=== PATIENT | female | born 1985 | race American Indian/Alaskan Native ===

== ENCOUNTER 2017-06-18 04:30 | Emergency (ER) | payer SELFPAY ==
[2017-06-18 04:42] VITALS: BP 139/85; PULSE 86; RESP 16; TEMP 98; O2SAT 98
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
[2017-06-18] MEDS ORDERED: Bacitracin 500 Units/gm Oint Foilpak UD ONE (05:26)
== END 2017-06-18 05:30 | disposition home or self-care (01) ==
LOC: C.ER 04:30
DX: S00.01XA Abrasion of scalp, initial encounter (principal); X99.1XXA Assault by knife, initial encounter